=== PATIENT | female | born 1940 ===

== ENCOUNTER 2023-04-20 07:14 | Inpatient (IN) | payer BC ==
[~2023-04-20] VITALS: Ht 167.6 cm; Wt 50.0 kg
[2023-04-20 08:01] LABS: CLARITY,URINE SLIGHTLY CLOUDY (Clear); COLOR,URINE YELLOW (Yellow); GLUCOSE, URINE NEGATIVE (Neg); KETONES,URINE NEGATIVE (Neg); LEUKOCYTE ESTERASE ,URINE SMALL (Neg); NITRITES, URINE NEGATIVE (Neg); OCCULT BLOOD,URINE NEGATIVE (Neg); PH,URINE 7.5 (4.8-8.0); PROTEIN,URINE NEGATIVE (Neg); UROBILINOGEN,URINE 0.2 E.U/dL (0.2-1.0)
[2023-04-20 08:04] LABS: UA COLLECTION TYPE CLN CATCH MIDSTREAM
[2023-04-20 08:08] LABS: WBC,URINE 20-30 /HPF (0-4)
[2023-04-20 08:09] LABS: BACTERIA,URINE FEW /HPF (Neg); MUCUS STRANDS NONE SEEN /LPF (Neg); RBC,URINE 0-2 /HPF (0-2); SQUAMOUS EPITHELIAL CELL,UR MODERATE /LPF (FEW); TRANSITIONAL EPI CELLS,URINE FEW /HPF; WBC CLUMPS,URINE FEW /HPF (NEGATIVE)
[2023-04-20 08:17] LABS: BASOPHILS # (AUTO) 0.1 X10'3 (0-0.2); BASOPHILS % (AUTO) 0.4 % (0-1); EOSINOPHILS % (AUTO) 0 % (0-6); HEMATOCRIT 41.7 % (35.0-45.0); HEMOGLOBIN 13.7 g/dl (12.0-16.0); LYMPHOCYTES # (AUTO) 0.7 X10'3 (1.1-4.8); LYMPHOCYTES % (AUTO) 3.1 % (21-51); MEAN CORPUSCULAR HGB CONC 32.9 g/dL (33.0-36.5); MEAN CORPUSCULAR VOLUME 97.2 FL (78-98); MEAN PLATELET VOLUME 8.2 FL (7.4-10.4); MONOCYTES # (AUTO) 1.2 X10'3 (0-0.9); MONOCYTES % (AUTO) 5.4 % (2-12); NEUTROPHILS # (AUTO) 19.6 X10'3 (1.8-7.7); NEUTROPHILS % (AUTO) 91.1 % (42-75); PLATELET COUNT 462 X10'3 (140-440); RED BLOOD COUNT 4.29 X10'6 (4.20-5.60); RED CELL DISTRIBUTION WIDTH 14.3 % (11.5-14.5); WHITE BLOOD COUNT 21.5 X10'3 (4.5-11.0)
[2023-04-20] MEDS ORDERED: normal saline 500ml IV soln 500 ML IV SCH (08:20)
[2023-04-20] MEDS ORDERED: piperacillin/tazo 3.375gm/50ml 50 ML IV ONE (08:25)
[2023-04-20 08:34] LABS: ALANINE AMINOTRANSFERASE 32 U/L (12-78); ALBUMIN 3.8 G/DL (3.4-5.0); ALBUMIN/GLOBULIN RATIO 1.2 (1.1-1.5); ALKALINE PHOSPHATASE 57 IU/L (46-116); ANION GAP 6 (8-16); ASPARTATE AMINO TRANSFERASE 29 U/L (10-37); BILIRUBIN,TOTAL 0.7 MG/DL (0.1-1.0); BLOOD UREA NITROGEN 13 MG/DL (7-18); BUN/CREATININE RATIO 18.3 (10.0-20.0); CALCIUM 9.6 MG/DL (8.5-10.1); CHLORIDE 97 MMOL/L (99-107); CREATININE 0.71 MG/DL (0.40-0.90); GLUCOSE 106 MG/DL (70-104); LIPASE 118 U/L (73-393); POTASSIUM 4.1 MMOL/L (3.5-5.1); SODIUM 131 MMOL/L (135-145); TOTAL CARBON DIOXIDE 28.4 MMOL/L (24-32); TOTAL PROTEIN 7.1 G/DL (6.4-8.2); eGFR 78 ML/MIN
[2023-04-20] MEDS ORDERED: LOSA25TA96 PO ×2 (09:33→12:03)
[2023-04-20] MEDS ORDERED: ATOR40TA PO (09:33)
[2023-04-20] MEDS ORDERED: SYN0.088T PO (09:33)
[2023-04-20] MEDS ORDERED: MELO-100 PO ×2 (09:33→12:03)
[2023-04-20] MEDS ORDERED: ASPI-1265 PO (09:33)
--- NOTE | 2023-04-20 09:33 | NUR ---
[facility] [phone]
[2023-04-20] MEDS ORDERED: morphine 2 MG/ML inj. syringe IV PRN ×2 (10:50)
[2023-04-20] MEDS ORDERED: ondansetron/PF 4mg/2ml inj IV PRN (10:50)
[2023-04-20] MEDS ORDERED: acetaminophen 650mg rectal suppository RC PRN (10:50)
[2023-04-20] MEDS ORDERED: magnesium 4gm in 100ml NS 100 ML IV PRN (10:50)
[2023-04-20] MEDS ORDERED: bisacodyl 10mg suppository rectal RC PRN (10:50)
[2023-04-20] MEDS ORDERED: potassium Cl 40MEQ/1/2NS 520ml 520 ML IV PRN (10:50)
[2023-04-20] MEDS ORDERED: magnesium Cl slow-release 64mg tablet PO PRN (10:50)
[2023-04-20] MEDS ORDERED: magnesium hydroxide 30ml (MOM) UD suspension PO PRN (10:50)
[2023-04-20] MEDS: normal saline 1000ml 1,000 ML IV SCH ×2 (10:50→20:50)
[2023-04-20] MEDS ORDERED: acetaminophen 325mg tablet PO PRN (10:50)
[2023-04-20] MEDS ORDERED: magnesium 2GM in 50ml NS 50 ML IV PRN (10:50)
[2023-04-20] MEDS ORDERED: mag hydrox/Alum hydrox/simeth 30ml oral suspension PO PRN (10:50)
[2023-04-20] MEDS ORDERED: potassium Cl 20 mEq SR tablet PO PRN ×2 (10:50)
[2023-04-20] MEDS ORDERED: HYDROcodone/acetaminophen 5mg/325mg tablet PO PRN (10:50)
[2023-04-20] MEDS ORDERED: diphenhydrAMINE 25mg capsule PO PRN (10:50)
[2023-04-20] MEDS ORDERED: morphine 2 MG/ML inj. syringe IV ONE (11:10)
[2023-04-20] MEDS ORDERED: ondansetron/PF 4mg/2ml inj IV ONE (11:10)
[2023-04-20] MEDS: acetaminophen 325mg tablet PO PRN ×2 (11:31→17:50)
[2023-04-20 12:02] LABS: HEMOGLOBIN A1C 5.6 % (4.5-6.2)
[2023-04-20] MEDS ORDERED: ATOR40TA71 PO (12:03)
[2023-04-20] MEDS ORDERED: ASPI-920 PO (12:03)
[2023-04-20] MEDS ORDERED: LEVO88TA2 PO (12:03)
[2023-04-20] MEDS ORDERED: NITR0.4T48 SL (12:03)
--- NOTE | 2023-04-20 12:13 | NUR ---
Message: Giles Smith Mary in ER room 7 would like to be DNR, not full code. Diana liu
[2023-04-20 14:00] VITALS: BP 139/49
[2023-04-20] MEDS: piperacillin/tazo 3.375gm/50ml 50 ML IV SCH (15:53)
[2023-04-20 18:00] VITALS: BP 120/51
--- NOTE | 2023-04-20 18:32 | NUR ---
Patient in room PCU 3023. I have received report from Laura WRIGHT and had the opportunity to ask questions and assume patient care.
--- NOTE | 2023-04-20 18:34 | NUR ---
Problems reprioritized. Patient report given, questions answered & plan of care reviewed with Anna WRIGHT, patient stable at transfer of care.
[2023-04-20] MEDS: K and/or MAG REPLACEMENT MC SCH (20:00)
[2023-04-20] MEDS: losartan 25mg tablet PO SCH (21:05)
[2023-04-20] MEDS: docusate sod 100mg capsule PO SCH (21:06)
[2023-04-20] MEDS: heparin, porcine 5000 units/ml vial SQ SCH (21:07)
[2023-04-20 22:00] VITALS: BP 128/50
[2023-04-20] MEDS ORDERED: LORazepam 1 MG tablet PO PRN (22:55)
[2023-04-20] MEDS ORDERED: LORazepam 2 mg/ml vial IV PRN (22:55)
[2023-04-21] VITALS (11 sets, daily range): BP systolic 110–137; BP diastolic 39–81
[2023-04-21] MEDS: piperacillin/tazo 3.375gm/50ml 50 ML IV SCH ×4 (01:19→23:56)
[2023-04-21] MEDS: normal saline 1000ml 1,000 ML IV SCH ×2 (01:30→15:35)
[2023-04-21 05:55] LABS: BASOPHILS % (AUTO) 0.3 % (0-1); EOSINOPHILS # (AUTO) 0.1 X10'3 (0-0.9); EOSINOPHILS % (AUTO) 0.6 % (0-6); HEMATOCRIT 36.9 % (35.0-45.0); HEMOGLOBIN 12.2 g/dl (12.0-16.0); LYMPHOCYTES # (AUTO) 1.9 X10'3 (1.1-4.8); LYMPHOCYTES % (AUTO) 10.5 % (21-51); MEAN CORPUSCULAR HEMOGLOBIN 32.1 PG (27.0-31.0); MEAN CORPUSCULAR VOLUME 97.3 FL (78-98); MEAN PLATELET VOLUME 8.8 FL (7.4-10.4); MONOCYTES # (AUTO) 1.1 X10'3 (0-0.9); MONOCYTES % (AUTO) 6.3 % (2-12); NEUTROPHILS # (AUTO) 14.5 X10'3 (1.8-7.7); NEUTROPHILS % (AUTO) 82.3 % (42-75); PLATELET COUNT 370 X10'3 (140-440); RED BLOOD COUNT 3.79 X10'6 (4.20-5.60); RED CELL DISTRIBUTION WIDTH 14.5 % (11.5-14.5); WHITE BLOOD COUNT 17.6 X10'3 (4.5-11.0)
[2023-04-21 05:58] LABS: ALANINE AMINOTRANSFERASE 27 U/L (12-78); ALBUMIN 2.8 G/DL (3.4-5.0); ALBUMIN/GLOBULIN RATIO 0.9 (1.1-1.5); ALKALINE PHOSPHATASE 45 IU/L (46-116); AMYLASE 46 U/L (25-115); ANION GAP 3 (8-16); ASPARTATE AMINO TRANSFERASE 29 U/L (10-37); BLOOD UREA NITROGEN 13 MG/DL (7-18); BUN/CREATININE RATIO 17.3 (10.0-20.0); CALCIUM 7.9 MG/DL (8.5-10.1); CHLORIDE 100 MMOL/L (99-107); CHOL/HDL RATIO 1.7 (0.00-4.99); CHOLESTEROL 121 MG/DL (0-200); CREATININE 0.75 MG/DL (0.40-0.90); GLUCOSE 99 MG/DL (70-104); HDL CHOLESTEROL 73 MG/DL (35-60); LDL CHOLESTEROL 44 MG/DL (50-100); LIPASE 67 U/L (73-393); MAGNESIUM 1.8 MG/DL (1.5-2.4); PHOSPHORUS 2.5 MG/DL (2.3-4.5); POTASSIUM 3.7 MMOL/L (3.5-5.1); SODIUM 132 MMOL/L (135-145); TOTAL CARBON DIOXIDE 28.7 MMOL/L (24-32); TOTAL PROTEIN 5.8 G/DL (6.4-8.2); TRIGLYCERIDES 48 MG/DL (20-135); eGFR 74 ML/MIN
--- NOTE | 2023-04-21 07:00 | NUR ---
Patient in room PCU 3023. I have received report from ADRIANA Mao and had the opportunity to ask questions and assume patient care.
--- NOTE | 2023-04-21 07:50 | NUR ---
Problems reprioritized. Patient report given, questions answered & plan of care reviewed with Stella RN.
[2023-04-21] MEDS: docusate sod 100mg capsule PO SCH ×2 (08:00→20:00)
[2023-04-21] MEDS: K and/or MAG REPLACEMENT MC SCH ×2 (08:00→20:00)
--- NOTE | 2023-04-21 09:53 | NUR ---
Initial: Per EMR pt present with c/o abdominal pain and admit for sepsis and UTI. Noted pt with a low BMI of 17.8 using scaled wt of 50 kg. No wt hx in EMR though pt denied wt loss or decreased appetite/PO intake per malnutrition risk screen with RN. Pt currently on a heart healthy diet, documented with 0-25% PO intake of first meal however up to 75-100% PO intake of second meal. Pending documentation of PO intake for today. LBM 6/2 documented as large. Pt with routine bowel care available however held this morning d/t not needed. Will continue to follow closely and monitor need for nutrition intervention pending trends in PO intake. Recommendations: 1) Liberalize to regular diet given geriatric age and lipid panel WNL with the exception of low LDL 2) Monitor need for ONS/additional protein 3) Bowel care per rx 4) Weekly scaled weights Addendum: 04/21/23 at [address] Amended: Links added.
[2023-04-21] MEDS: folic acid 1mg/0.2ml inj IV SCH (11:47)
[2023-04-21] MEDS: thiamine 100mg/ml 2ml inj. IV SCH ×3 (11:52→22:23)
[2023-04-21] MEDS: aspirin 81mg tab.chew PO SCH (11:52)
[2023-04-21] MEDS: levoTHYROXINE 88mcg tablet PO SCH (11:52)
[2023-04-21] MEDS: losartan 25mg tablet PO SCH ×2 (11:53→22:23)
[2023-04-21] MEDS: multivitamins, therapeutics tablet PO SCH (11:53)
[2023-04-21] MEDS: atorvastatin 20mg tablet PO SCH (11:53)
[2023-04-21] MEDS: heparin, porcine 5000 units/ml vial SQ SCH ×2 (11:54→22:24)
[2023-04-21] MEDS: acetaminophen 325mg tablet PO PRN ×2 (11:55→23:34)
[2023-04-21] MEDS ORDERED: diltiazem 5mg/ml 5ml inj. IV ONE (18:45)
[2023-04-21] MEDS ORDERED: diltiazem-NS 100mg/100ml 100 ML IV SCH (18:45)
--- NOTE | 2023-04-21 18:45 | NUR ---
Spoke with Dr Deal re: Pt in Afib w/RVR per tele monitor & EKG. states he does not need to come read EKG & proceeded w/orders.
[2023-04-22] MEDS: normal saline 1000ml 1,000 ML IV SCH ×3 (01:25→19:55)
[2023-04-22 02:00] VITALS: BP 118/52
[2023-04-22] MEDS: diltiazem 30mg tablet PO SCH ×4 (02:32→19:44)
[2023-04-22 05:50] LABS: BASOPHILS # (AUTO) 0.1 X10'3 (0-0.2); BASOPHILS % (AUTO) 0.6 % (0-1); EOSINOPHILS # (AUTO) 0.3 X10'3 (0-0.9); EOSINOPHILS % (AUTO) 2.9 % (0-6); HEMATOCRIT 36.4 % (35.0-45.0); HEMOGLOBIN 12.2 g/dl (12.0-16.0); LYMPHOCYTES # (AUTO) 1.7 X10'3 (1.1-4.8); LYMPHOCYTES % (AUTO) 16.7 % (21-51); MEAN CORPUSCULAR HEMOGLOBIN 32.8 PG (27.0-31.0); MEAN CORPUSCULAR HGB CONC 33.6 g/dL (33.0-36.5); MEAN CORPUSCULAR VOLUME 97.6 FL (78-98); MEAN PLATELET VOLUME 8.9 FL (7.4-10.4); MONOCYTES # (AUTO) 0.8 X10'3 (0-0.9); MONOCYTES % (AUTO) 7.6 % (2-12); NEUTROPHILS # (AUTO) 7.4 X10'3 (1.8-7.7); NEUTROPHILS % (AUTO) 72.2 % (42-75); PLATELET COUNT 370 X10'3 (140-440); RED BLOOD COUNT 3.73 X10'6 (4.20-5.60); RED CELL DISTRIBUTION WIDTH 14.4 % (11.5-14.5); WHITE BLOOD COUNT 10.2 X10'3 (4.5-11.0)
[2023-04-22 06:31] LABS: ALANINE AMINOTRANSFERASE 28 U/L (12-78); ALBUMIN 2.9 G/DL (3.4-5.0); ALKALINE PHOSPHATASE 43 IU/L (46-116); AMYLASE 45 U/L (25-115); ANION GAP 8 (8-16); ASPARTATE AMINO TRANSFERASE 31 U/L (10-37); BILIRUBIN,TOTAL 0.4 MG/DL (0.1-1.0); BLOOD UREA NITROGEN 6 MG/DL (7-18); BUN/CREATININE RATIO 8.2 (10.0-20.0); CHLORIDE 105 MMOL/L (99-107); CREATININE 0.73 MG/DL (0.40-0.90); GLUCOSE 91 MG/DL (70-104); LIPASE 75 U/L (73-393); PHOSPHORUS 2.6 MG/DL (2.3-4.5); POTASSIUM 3.6 MMOL/L (3.5-5.1); SODIUM 140 MMOL/L (135-145); TOTAL CARBON DIOXIDE 26.9 MMOL/L (24-32); TOTAL PROTEIN 5.7 G/DL (6.4-8.2); eGFR 76 ML/MIN
--- NOTE | 2023-04-22 06:40 | NUR ---
Problems reprioritized. Patient report given, questions answered & plan of care reviewed with ADRIANA Thomas.
[2023-04-22 07:00] VITALS: BP 147/61
[2023-04-22] MEDS: docusate sod 100mg capsule PO SCH ×3 (08:00→19:44)
[2023-04-22] MEDS: K and/or MAG REPLACEMENT MC SCH ×2 (08:00→19:37)
[2023-04-22] MEDS: multivitamins, therapeutics tablet PO SCH (08:11)
[2023-04-22] MEDS: levoTHYROXINE 88mcg tablet PO SCH (08:11)
[2023-04-22] MEDS: losartan 25mg tablet PO SCH ×2 (08:12→19:44)
[2023-04-22] MEDS: aspirin 81mg tab.chew PO SCH (08:12)
[2023-04-22] MEDS: thiamine 100mg/ml 2ml inj. IV SCH ×3 (08:13→19:48)
[2023-04-22] MEDS: atorvastatin 20mg tablet PO SCH (08:13)
[2023-04-22] MEDS: folic acid 1mg/0.2ml inj IV SCH (08:13)
[2023-04-22] MEDS: piperacillin/tazo 3.375gm/50ml 50 ML IV SCH ×3 (08:13→23:38)
[2023-04-22] MEDS: heparin, porcine 5000 units/ml vial SQ SCH ×2 (08:14→19:45)
[2023-04-22 11:00] VITALS: BP 150/62
[2023-04-22 15:00] VITALS: BP 164/58
--- NOTE | 2023-04-22 18:03 | NUR ---
Problems reprioritized. Patient report given, questions answered & plan of care reviewed with Dennys WRIGHT. Patient resting in bed in no acute distress.
[2023-04-22 18:30] VITALS: BP 161/73
[2023-04-22 22:00] VITALS: BP 138/68
[2023-04-23] MEDS: diltiazem 30mg tablet PO SCH ×4 (03:14→20:48)
[2023-04-23 05:43] LABS: BASOPHILS # (AUTO) 0.1 X10'3 (0-0.2); BASOPHILS % (AUTO) 0.6 % (0-1); EOSINOPHILS # (AUTO) 0.5 X10'3 (0-0.9); EOSINOPHILS % (AUTO) 4.8 % (0-6); HEMATOCRIT 38.2 % (35.0-45.0); HEMOGLOBIN 12.9 g/dl (12.0-16.0); LYMPHOCYTES # (AUTO) 1.9 X10'3 (1.1-4.8); MEAN CORPUSCULAR HEMOGLOBIN 32.8 PG (27.0-31.0); MEAN CORPUSCULAR HGB CONC 33.9 g/dL (33.0-36.5); MEAN CORPUSCULAR VOLUME 96.8 FL (78-98); MEAN PLATELET VOLUME 8.2 FL (7.4-10.4); MONOCYTES # (AUTO) 0.7 X10'3 (0-0.9); MONOCYTES % (AUTO) 7.3 % (2-12); NEUTROPHILS # (AUTO) 6.4 X10'3 (1.8-7.7); NEUTROPHILS % (AUTO) 67.3 % (42-75); PLATELET COUNT 448 X10'3 (140-440); RED BLOOD COUNT 3.95 X10'6 (4.20-5.60); RED CELL DISTRIBUTION WIDTH 14.4 % (11.5-14.5); WHITE BLOOD COUNT 9.5 X10'3 (4.5-11.0)
[2023-04-23 06:11] LABS: ALANINE AMINOTRANSFERASE 30 U/L (12-78); ALBUMIN/GLOBULIN RATIO 0.9 (1.1-1.5); ALKALINE PHOSPHATASE 48 IU/L (46-116); AMYLASE 47 U/L (25-115); ANION GAP 10 (8-16); ASPARTATE AMINO TRANSFERASE 27 U/L (10-37); BILIRUBIN,TOTAL 0.5 MG/DL (0.1-1.0); BLOOD UREA NITROGEN 2 MG/DL (7-18); BUN/CREATININE RATIO 2.9 (10.0-20.0); CALCIUM 8.3 MG/DL (8.5-10.1); CHLORIDE 103 MMOL/L (99-107); CREATININE 0.69 MG/DL (0.40-0.90); GLUCOSE 96 MG/DL (70-104); LIPASE 74 U/L (73-393); MAGNESIUM 1.8 MG/DL (1.5-2.4); PHOSPHORUS 2.3 MG/DL (2.3-4.5); POTASSIUM 3.7 MMOL/L (3.5-5.1); SODIUM 138 MMOL/L (135-145); TOTAL CARBON DIOXIDE 25.3 MMOL/L (24-32); TOTAL PROTEIN 6.2 G/DL (6.4-8.2); eGFR 81 ML/MIN
--- NOTE | 2023-04-23 06:30 | NUR ---
Problems reprioritized. Patient report given, questions answered & plan of care reviewed with Marissa. Addendum: 04/23/23 at 0639 by Eric West RN Amended: Links added.
[2023-04-23 07:04] VITALS: BP 135/71
[2023-04-23] MEDS: multivitamins, therapeutics tablet PO SCH (08:46)
[2023-04-23] MEDS: aspirin 81mg tab.chew PO SCH (08:46)
[2023-04-23] MEDS: losartan 25mg tablet PO SCH ×2 (08:48→20:54)
[2023-04-23] MEDS: levoTHYROXINE 88mcg tablet PO SCH (08:48)
[2023-04-23] MEDS: thiamine 100mg/ml 2ml inj. IV SCH ×3 (08:48→20:47)
[2023-04-23] MEDS: atorvastatin 20mg tablet PO SCH (08:48)
[2023-04-23] MEDS: folic acid 1mg/0.2ml inj IV SCH (08:49)
[2023-04-23] MEDS: normal saline 1000ml 1,000 ML IV SCH ×2 (08:50→16:46)
[2023-04-23] MEDS: K and/or MAG REPLACEMENT MC SCH ×2 (08:51→20:00)
[2023-04-23] MEDS: docusate sod 100mg capsule PO SCH ×2 (08:51→20:00)
[2023-04-23] MEDS: heparin, porcine 5000 units/ml vial SQ SCH ×2 (08:52→20:49)
[2023-04-23] MEDS: piperacillin/tazo 3.375gm/50ml 50 ML IV SCH ×3 (09:01→23:44)
[2023-04-23 12:00] VITALS: BP 141/69
[2023-04-23 16:00] VITALS: BP 152/63
--- NOTE | 2023-04-23 16:31 | NUR ---
Room 3009 - [facility] - restart home lasix? home dose is 20mg -[id number] -[id number]
[2023-04-23 19:00] VITALS: BP 160/61
[2023-04-23 22:00] VITALS: BP 138/66
[2023-04-24 02:00] VITALS: BP 135/65
[2023-04-24] MEDS: diltiazem 30mg tablet PO SCH ×2 (02:04→09:13)
[2023-04-24] MEDS: normal saline 1000ml 1,000 ML IV SCH ×2 (04:30→16:31)
--- NOTE | 2023-04-24 06:25 | NUR ---
Problems reprioritized. Patient report given, questions answered & plan of care reviewed with CARLEEN. Addendum: 04/24/23 at 06 by Eric West RN Amended: Links added.
[2023-04-24 07:03] VITALS: BP 154/77
[2023-04-24 07:31] LABS: BASOPHILS # (AUTO) 0.1 X10'3 (0-0.2); BASOPHILS % (AUTO) 0.6 % (0-1); EOSINOPHILS # (AUTO) 0.4 X10'3 (0-0.9); HEMATOCRIT 40.4 % (35.0-45.0); HEMOGLOBIN 13.4 g/dl (12.0-16.0); LYMPHOCYTES # (AUTO) 1.9 X10'3 (1.1-4.8); LYMPHOCYTES % (AUTO) 23.5 % (21-51); MEAN CORPUSCULAR HEMOGLOBIN 32.3 PG (27.0-31.0); MEAN CORPUSCULAR HGB CONC 33.2 g/dL (33.0-36.5); MEAN CORPUSCULAR VOLUME 97.3 FL (78-98); MEAN PLATELET VOLUME 8.2 FL (7.4-10.4); MONOCYTES # (AUTO) 0.7 X10'3 (0-0.9); MONOCYTES % (AUTO) 8.4 % (2-12); NEUTROPHILS % (AUTO) 62.5 % (42-75); PLATELET COUNT 503 X10'3 (140-440); RED BLOOD COUNT 4.15 X10'6 (4.20-5.60); RED CELL DISTRIBUTION WIDTH 14.4 % (11.5-14.5)
[2023-04-24 07:43] LABS: ALANINE AMINOTRANSFERASE 26 U/L (12-78); ALBUMIN 3.1 G/DL (3.4-5.0); ALBUMIN/GLOBULIN RATIO 0.9 (1.1-1.5); ALKALINE PHOSPHATASE 47 IU/L (46-116); AMYLASE 50 U/L (25-115); ANION GAP 8 (8-16); ASPARTATE AMINO TRANSFERASE 26 U/L (10-37); BILIRUBIN,TOTAL 0.5 MG/DL (0.1-1.0); BLOOD UREA NITROGEN 3 MG/DL (7-18); BUN/CREATININE RATIO 4.5 (10.0-20.0); CALCIUM 8.6 MG/DL (8.5-10.1); CHLORIDE 103 MMOL/L (99-107); CREATININE 0.66 MG/DL (0.40-0.90); GLUCOSE 94 MG/DL (70-104); LIPASE 75 U/L (73-393); MAGNESIUM 1.8 MG/DL (1.5-2.4); PHOSPHORUS 2.9 MG/DL (2.3-4.5); POTASSIUM 3.8 MMOL/L (3.5-5.1); SODIUM 137 MMOL/L (135-145); TOTAL CARBON DIOXIDE 26.4 MMOL/L (24-32); TOTAL PROTEIN 6.4 G/DL (6.4-8.2); eGFR 85 ML/MIN
[2023-04-24] MEDS: K and/or MAG REPLACEMENT MC SCH ×2 (08:00→20:00)
[2023-04-24] MEDS: piperacillin/tazo 3.375gm/50ml 50 ML IV SCH ×2 (09:12→16:28)
[2023-04-24] MEDS: docusate sod 100mg capsule PO SCH ×2 (09:13→20:00)
[2023-04-24] MEDS: atorvastatin 20mg tablet PO SCH (09:13)
[2023-04-24] MEDS: aspirin 81mg tab.chew PO SCH (09:13)
[2023-04-24] MEDS: multivitamins, therapeutics tablet PO SCH (09:14)
[2023-04-24] MEDS: losartan 25mg tablet PO SCH ×2 (09:14→21:06)
[2023-04-24] MEDS: levoTHYROXINE 88mcg tablet PO SCH (09:14)
[2023-04-24] MEDS: heparin, porcine 5000 units/ml vial SQ SCH (09:15)
[2023-04-24] MEDS: HYDROcodone/acetaminophen 10/325mg tab PO PRN (10:17)
[2023-04-24 11:45] VITALS: BP 166/75
[2023-04-24] MEDS ORDERED: PERFLUTREN PROTEIN-A MICROSPHR (Optison) 0.22 MG/ML 3ML VIAL IV ONE (14:25)
[2023-04-24] MEDS ORDERED: metoprolol tartrate 50mg tablet PO ONE (14:30)
[2023-04-24] MEDS ORDERED: APIX5TAB3 PO (14:31)
[2023-04-24] MEDS ORDERED: FOLI0.4T6 PO (14:31)
[2023-04-24] MEDS ORDERED: THIA50TA10 PO (14:31)
[2023-04-24] MEDS ORDERED: CEFD300C3 PO (14:31)
[2023-04-24] MEDS ORDERED: LACT1CAP26 PO (14:31)
[2023-04-24] MEDS ORDERED: METO50TA16 PO (14:31)
[2023-04-24] MEDS ORDERED: MULT-25 PO (14:31)
--- NOTE | 2023-04-24 15:52 | NUR ---
Reassessment: PO intake fluctuates however overall pt has been eating fair for age, documented with average 50% PO intake since admit though noted up to 75-100% PO intake at dinner last night. Pending documentation of PO intake for today. Pt now on a vegetarian gluten free diet. Pt seen at bedside states appetite is improved and reports liking the vegetarian diet better as she doesn't eat much meat. Pt reports eating more than half of lunch today. Food preferences were obtained and d/w dietary, see below. 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 Pt denies any difficulty chewing or swallowing. Pt provided with RD contact information and pt encouraged to reach out for any additional food preferences. LBM 6/5 per EMR. Will continue to follow and monitor need for further nutrition intervention. Recommendations: 1) Continue gluten free vegetarian diet per pt request; heart healthy diet not warranted given geriatric age and lipid panel WNL with the exception of low LDL 2) [place] food preferences: [employer] toast, butter, jelly, and yogurt WB; no coffee or scrambled eggs 3) Monitor need for ONS/additional protein 4) Bowel care per rx 5) Weekly scaled weights Addendum: 04/24/23 at [address] Amended: Links added.
[2023-04-24 16:00] VITALS: BP 162/85
[2023-04-24] MEDS: apixaban 5mg tablet PO SCH ×2 (16:30→20:00)
[2023-04-24 18:00] VITALS: BP 153/75
--- NOTE | 2023-04-24 18:52 | NUR ---
Patient in room PCU 3023. I have received report from Marissa WRIGHT and had the opportunity to ask questions and assume patient care.
--- NOTE | 2023-04-24 19:00 | NUR ---
Per pharmacist Kelin, [facility] tonights 2000 Eliquis dose as it is too early from 1630 dose. Administer at next scheduled time of 04/25/23 at 0800.
[2023-04-24] MEDS: metoprolol tartrate 50mg tablet PO SCH (21:05)
[2023-04-24 22:00] VITALS: BP 160/74
[2023-04-25] MEDS: piperacillin/tazo 3.375gm/50ml 50 ML IV SCH ×2 (00:05→08:58)
[2023-04-25 03:20] VITALS: BP 172/83
[2023-04-25 04:31] VITALS: BP_SYST 167; BP_SYST 187; BP_DIAS 81; BP_DIAS 84
--- NOTE | 2023-04-25 04:36 | NUR ---
Called MD Woods about pt elevated BP. Left message.
[2023-04-25] MEDS ORDERED: hydrALAZINE 20mg/ml inj. IV PRN (05:50)
--- NOTE | 2023-04-25 06:22 | NUR ---
Problems reprioritized. Patient report given, questions answered & plan of care reviewed with Marissa.
[2023-04-25 07:01] LABS: BASOPHILS % (AUTO) 0.5 % (0-1); EOSINOPHILS # (AUTO) 0.5 X10'3 (0-0.9); EOSINOPHILS % (AUTO) 5.4 % (0-6); HEMATOCRIT 40.1 % (35.0-45.0); HEMOGLOBIN 13.8 g/dl (12.0-16.0); LYMPHOCYTES # (AUTO) 1.5 X10'3 (1.1-4.8); MEAN CORPUSCULAR HEMOGLOBIN 33.1 PG (27.0-31.0); MEAN CORPUSCULAR HGB CONC 34.3 g/dL (33.0-36.5); MEAN CORPUSCULAR VOLUME 96.4 FL (78-98); MEAN PLATELET VOLUME 7.9 FL (7.4-10.4); MONOCYTES # (AUTO) 0.8 X10'3 (0-0.9); MONOCYTES % (AUTO) 9.2 % (2-12); NEUTROPHILS # (AUTO) 5.6 X10'3 (1.8-7.7); NEUTROPHILS % (AUTO) 66.9 % (42-75); PLATELET COUNT 507 X10'3 (140-440); RED BLOOD COUNT 4.15 X10'6 (4.20-5.60); RED CELL DISTRIBUTION WIDTH 14.1 % (11.5-14.5); WHITE BLOOD COUNT 8.4 X10'3 (4.5-11.0)
[2023-04-25 07:10] VITALS: BP 173/80
[2023-04-25 07:30] LABS: ALANINE AMINOTRANSFERASE 31 U/L (12-78); ALBUMIN/GLOBULIN RATIO 0.9 (1.1-1.5); ALKALINE PHOSPHATASE 46 IU/L (46-116); AMYLASE 49 U/L (25-115); ANION GAP 6 (8-16); ASPARTATE AMINO TRANSFERASE 28 U/L (10-37); BILIRUBIN,TOTAL 0.6 MG/DL (0.1-1.0); BLOOD UREA NITROGEN 5 MG/DL (7-18); BUN/CREATININE RATIO 6.8 (10.0-20.0); CHLORIDE 103 MMOL/L (99-107); CREATININE 0.74 MG/DL (0.40-0.90); GLUCOSE 93 MG/DL (70-104); LIPASE 68 U/L (73-393); MAGNESIUM 1.9 MG/DL (1.5-2.4); PHOSPHORUS 3.9 MG/DL (2.3-4.5); POTASSIUM 4.5 MMOL/L (3.5-5.1); SODIUM 137 MMOL/L (135-145); TOTAL CARBON DIOXIDE 28.4 MMOL/L (24-32); TOTAL PROTEIN 6.4 G/DL (6.4-8.2); eGFR 75 ML/MIN
[2023-04-25] MEDS ORDERED: thiamine 100mg tablet PO SCH (08:00)
[2023-04-25] MEDS: K and/or MAG REPLACEMENT MC SCH (08:00)
[2023-04-25] MEDS ORDERED: folic acid 1mg tablet PO SCH (08:00)
[2023-04-25] MEDS: atorvastatin 20mg tablet PO SCH (08:59)
[2023-04-25] MEDS: apixaban 5mg tablet PO SCH (08:59)
[2023-04-25] MEDS: aspirin 81mg tab.chew PO SCH (08:59)
[2023-04-25] MEDS: docusate sod 100mg capsule PO SCH (09:00)
[2023-04-25] MEDS: losartan 25mg tablet PO SCH (09:00)
[2023-04-25] MEDS: levoTHYROXINE 88mcg tablet PO SCH (09:01)
[2023-04-25] MEDS: metoprolol tartrate 50mg tablet PO SCH (09:01)
[2023-04-25] MEDS: multivitamins, therapeutics tablet PO SCH (09:02)
[2023-04-25 09:14] VITALS: BP 159/72
[2023-04-25 11:00] VITALS: BP 134/64
[2023-04-25] MEDS: normal saline 1000ml 1,000 ML IV SCH (11:07)
[2023-04-25] MEDS ORDERED: LOSA25TA41 PO (14:05)
[2023-04-25] MEDS: HYDROcodone/acetaminophen 10/325mg tab PO PRN (14:46)
--- NOTE | 2023-04-25 15:47 | NUR ---
pt dc'd home with family. discharge instructions explained to patient and son in law with both verbalizing understanding regarding plan of care. pt with new atrial fibrillation when presenting to the ed this visit. new medications prescribed for the afib and pt's hand alterations tailor is dr bowman with whom she will follow up with. will also follow up with her pmd dr chambers. new prescriptions escripted to [facility] on [address]. pt left via [place], vss a/ox4 pt instructed that meloxicam was stopped due to new prescription of eliquis and she should talk to her doctor about alternatives for pain control.
== END 2023-04-25 15:43 | disposition home or self-care (01) | DRG 871 ==
LOC: ER 07:15 → ED HOLD 10:51 → PCU 3S 13:14
PROVIDERS: ADMIT Family Medicine; ATTEND Family Medicine
DX: A41.9 Sepsis, unspecified organism (principal); E43 Unspecified severe protein-calorie malnutrition; N12 Tubulo-interstitial nephritis, not specified as acute or chronic; Z68.1 Body mass index [BMI] 19.9 or less, adult; E87.1 Hypo-osmolality and hyponatremia; Z66 Do not resuscitate; E03.9 Hypothyroidism, unspecified; I48.0 Paroxysmal atrial fibrillation; Z60.2 Problems related to living alone; E78.5 Hyperlipidemia, unspecified; E86.0 Dehydration; F10.10 Alcohol abuse, uncomplicated; I10 Essential (primary) hypertension; Z85.3 Personal history of malignant neoplasm of breast; Z90.49 Acquired absence of other specified parts of digestive tract; Z91.018 Allergy to other foods; Z71.41 Alcohol abuse counseling and surveillance of alcoholic; Z79.899 Other long term (current) drug therapy
CPT/HCPCS: 36415; 74176; 76700; 80053; 80061; 81001; 82150; 83036; 83605; 83690; 83735; 84100; 84145; 84443; 84484; 85025; 85610; 87040; 87081; 87088; 93005; 93306; 99285; G0378; J1644; J2543; J3411; J3490; J7030; J7040